=== PATIENT | male | born 1990 | race Two or more races ===

== ENCOUNTER 2020-12-05 12:53 | Emergency (ER) | payer OTHER ==
[~2020-12-05] VITALS: Ht 170.2 cm; Wt 72.0 kg
--- NOTE | 2020-12-05 14:00 | NUR ---
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
[2020-12-05] MEDS ORDERED: METHOCARBAMOL 750 MG TABLET PO ONE (14:30)
[2020-12-05] MEDS ORDERED: KETOROLAC 30 MG/1 ML IM ONE (14:30)
[2020-12-05] MEDS ORDERED: METHOCARBAMOL 750 MG TABLET ONE (14:42)
[2020-12-05] MEDS ORDERED: KETOROLAC 30 MG/1 ML ONE (14:43)
[2020-12-05 15:30] VITALS: BP 132/74
== END 2020-12-05 15:32 | disposition home or self-care (01) ==
LOC: ED 15:25
DX: S39.012A Strain of muscle, fascia and tendon of lower back, initial encounter (principal); X58.XXXA Exposure to other specified factors, initial encounter; Y93.89 Activity, other specified; Y92.89 Other specified places as the place of occurrence of the external cause; Y99.8 Other external cause status
CPT/HCPCS: 72110; 96372; 99283; J1885